=== PATIENT | female | born 1960 | race Caucasian/White ===

== ENCOUNTER 2016-07-25 18:26 | Emergency (ER) | payer BC, MEDICARE ==
[~2016-07-25 18:26] MED LIST: AMB5 PO; AMOXIL500 MG PO; B121000P IM; B12250T PO; BENTYL; BENTYL10 PO; BENTYL20 PO; BUSPAR10 PO; BUTRANS 15 MCG TOP; BUTRANS TOP; BUTRANS1 EAC1 TOP; BUTRANS1 EAC2 TOP; CALCIUM CITRATE 200 MG PO; CALCIUM CITRATE PO; CALCIUM CITRATE+D PO; CALTRA600D PO; CARD30 PO; CAT1 PO; CHOLECALCIFEROL PO; CIPRO PO; CITRACAL PO; COPPER; COPPER 2 MG PO; COPPER PO; COR40 PO; CORTEF10 MG OR; CORTEF20 MG PO; CORTEF5 PO; CREON; CREON PO; CYMBALTA30 PO; CYMBALTA60 PO; D 5000 PO; DAPSONE 100 MG100 MG OR; DAPSONE 100 MG100 MG PO; DAPSONE100 MG OR; DIL2TAB; DIL4TAB PO; DOLOPHINE10 MG PO; DOLOPHINE5 MG PO; DONNATA1 OR; DURA100 TOP; DURA25 TOP; DURA50 TOP; DURA75 TOP; ESTRACE VAGIN42.5 GM V; ESTRADIOL V; ESTRING2 MG VA; FERGON240 MG PO; FERRETTS325 MG PO; FERROUS GLUC324 MG PO; FERROUS GLUC325 MG PO; FERROUS GLUCONATE 325 MG PO; FERROUS GLUCONATE PO; FERROUS SULF325 M1 PO; FLAG500TAB PO; GAS-X80 MG PO; GENASYME80 MG PO; HYDROCHLOROT12.5 MG PO; IMOD PO; IMU PO; IRON325 MG PO; K500 PO; KDUR20 PO; KLOR-CON 1010 MEQ; KLOR-CON M2020 MEQ PO; L20 PO; LEVOTHROID25 MCG PO; LEVSINTAB PO; LEVSINTAB SL; LIDO5OINT TOP; LIDOCAINE 5% CREAM PR; LIDOCAINE 5% CREAM RE; LIDODERM; LIDODERM RE; LIDODERM T; LIDODERM TOP; LOP25 PO; LORTAB10 PO; LORTABLIQ PO; LYRICA50 PO; LYRICA75 PO; MAGNESIUM OXIDE 100 MG PO; MAGNESIUM PO; MAGOX4 PO; MAX25 PO; MEPRON SUS750 MG/5 M PO; METHADOSE10 MG PO; METHATAB10 PO; METHATAB40 PO; MICROZIDE PO; MORPHINE SULFATE PO; MSIMMR15 PO; MULTIPLE VIT PO; MYLICON 80 MG T80 MG PO; MYTAB GAS125 MG PO; MYTAB GAS80 MG PO; NEBUPENT300 M1 INH; NEUR300 PO; NEUR400 PO; NEUR600 PO; NIFEDIPINE 0.2% TOP; NIFEDIPINE/LIDOCAINE PR; NORV10 PO; OPIUM; OS500+D PO; PEP20 PO; PEPCID40 MG OR; PEPCID40 MG PO; PREM625 PO; PROGRAF1; PROGRAF1 PO; PROTONIX PO; PROZAC PO; PROZAC40 MG PO; ROZEREM8 MG PO; SB325 PO; SEROQUEL1C PO; SODBICAR10 PO; SODIUM BICARB PO; SODIUM BICARBONATE PO; SUCR PO; SYN.025B PO; SYN.05 PO; Sodium Bicarbonate PO; T PO; TACROLIMUS PO; TEARS NATURA OPH; TESS PO; TINCTURE OF OPIUM PO; TOPAMAX100 PO; TOPXL25 PO; TRAZ100 PO; TRAZ50 PO; TRAZODONE150 MG PO; URO-MAG140 MG PO; V5 PO; VAGIFEM VA; VAGIFEM10 MCG V; VAGIFEM10 MCG VA; VAGIFEM25 MCG V; VALIUM10 MG PO; VIT B-SIX 50 MG50 MG OR; VITAMIN B-2100 MG PO; VITAMIN B-625 MG OR; VITAMIN C100 MG PO; VITC500 PO; VITD PO; VIVELLE SY0.1 MG/24 TOP; VIVELLE-DOT0.1 MG TOP; WELL100 PO; WELLBUTRIN200 MG PO; WELLSR100 PO; XANAX1 MG PO; ZENPEP5000 UNIT PO; ZOFRAN4 PO; ZOFRANODT8 PO; [UNRECOGNIZED DRUG - OTHER] IV; [UNRECOGNIZED DRUG - OTHER] PO; [UNRECOGNIZED DRUG - OTHER] PO; [UNRECOGNIZED DRUG - OTHER] PO; [UNRECOGNIZED DRUG - OTHER] PO
[2016-07-25 19:00] LABS: BASOPHILS 0.4 %; BASOPHILS ABSOLUTE 0.04 10/3/uL (0.0-0.16); EOSINOPHILS 1.2 %; EOSINOPHILS ABSOLUTE 0.12 10/3/uL (0.0-0.53); ER CBC TAT 0 Hrs 13 Mins; IMMATURE GRANULOCYTES 0.8 %; IMMATURE GRANULOCYTES ABSOLUTE 0.08 10/3/uL (0.0-0.11); LYMPHOCYTES 3.1 %; LYMPHOCYTES ABSOLUTE 0.32 10/3/uL (0.67-4.30); MEAN CORPUS HGB CONC 30.9 g/dL (32.0-36.0); MEAN CORPUSCULAR HEMOGLOB 32.3 pg (26.0-34.0); MEAN PLATELET VOLUME 12.2 fL (9.2-13.0); MONOCYTES ABSOLUTE 0.81 10/3/uL (0.21-1.20); NEUTROPHILS 86.5 %; NEUTROPHILS ABSOLUTE 8.79 10/3/uL (2.02-8.40); NUCLEATED RED BLOOD CELLS 0.6 /100WBC (0-0); PLATELET COUNT 153 10/3/uL (150-400); RBC DISTRIBUTION WIDTH 14.4 % (12.0-16.0); RED CELL COUNT 3.72 10/6/uL (4.0-5.6); WHITE BLOOD CELLS 10.2 10/3/uL (4.5-10.5)
[2016-07-25 19:01] LABS: HEMATOCRIT 38.8 % (36.0-48.0); MEAN CORPUSCULAR VOLUME 104.3 fL (80-100)
[2016-07-25 19:02] LABS: MANUAL DIFF NO %
[2016-07-25 19:16] LABS: ALBUMIN 2.2 G/DL (3.5-5.0); ALKALINE PHOSPHATASE 89 U/L (45-117); BUN (BLOOD UREA NITROGEN) 11 MG/DL (6-23); CHLORIDE, SERUM 110 MMOL/L (96-112); GFR AFRICAN AMERICAN 36 ML/MIN (>=60); GFR NON AFRICAN AMERICAN 31 ML/MIN (>=60); GLUCOSE, SERUM 107 MG/DL (60-99); SGPT(ALT) 29 U/L (5-65); SODIUM, SERUM 139 MMOL/L (135-148); TOTAL BILIRUBIN 0.8 MG/DL (0-1.2); TOTAL PROTEIN 5.7 G/DL (6.0-8.5)
[2016-07-25 19:18] LABS: A/G RATIO 0.6 (0.7-1.9); CO2 (CARBON DIOXIDE) 20 MMOL/L (24-34); GLOBULIN 3.5 G/DL (2.5-4.1); POTASSIUM, SERUM 5.3 MMOL/L (3.5-5.3)
[2016-07-25 19:19] LABS: SGOT(AST) 44 U/L (5-40)
[2016-07-25 19:28] LABS: EOSINOPHILS 4 %; EOSINOPHILS ABSOLUTE (CALC) 0.41 10/3/uL (0.0-0.53); ER DIFF TAT 0 Hrs 41 Mins; LYMPHOCYTES 5 %; LYMPHOCYTES ABSOLUTE (CALC) 0.51 10/3/uL (0.67-4.30); MONOCYTES 4 %; MONOCYTES ABSOLUTE (CALC) 0.41 10/3/uL (0.21-1.20); NEUTROPHILS ABSOLUTE (CALC) 8.87 10/3/uL (2.02-8.40); SEGMENTED NEUTROPHIL (0) 87 %; TOTAL NUCLEATED CELLS 100
[2016-07-25 19:31] LABS: MACROCYTES 1+ (5-10/OIF) (0-5/OIF); PLATELET ESTIMATE ADQ (ADEQUATE); POLYCHROMASIA 1+ (2-5/OIF) (0-1/OIF)
[2016-07-25 19:32] LABS: GIANT PLATELET RARE
[2016-12-15] MEDS ORDERED: LOVENOX40 SC (01:01)
[2016-12-15] MEDS ORDERED: VANCO1P IV (01:04)
[2016-12-15] MEDS ORDERED: AMB10 PO (01:06)
[2016-12-15] MEDS ORDERED: BENTYL10 PO (01:09)
[2016-12-15] MEDS ORDERED: BUTRANS1 EAC1 TOP (01:09)
[2016-12-15] MEDS ORDERED: CAT1 PO (01:09)
[2016-12-15] MEDS ORDERED: CORTEF5 PO (01:11)
[2016-12-15] MEDS ORDERED: CYMBALTA60 PO (01:11)
[2016-12-15] MEDS ORDERED: V5 PO (01:12)
[2016-12-15] MEDS ORDERED: DIL4TAB PO (01:13)
[2016-12-15] MEDS ORDERED: ESTRACE VAGIN42.5 GM V (01:14)
[2016-12-15] MEDS ORDERED: APRES25 PO (01:15)
[2016-12-15] MEDS ORDERED: VAGIFEM10 MCG V (01:15)
[2016-12-15] MEDS ORDERED: FERROUS GLUCONATE PO (01:15)
[2016-12-15] MEDS ORDERED: LAMICTAL10 PO (01:16)
[2016-12-15] MEDS ORDERED: LIDODERM TOP (01:17)
[2016-12-15] MEDS ORDERED: DOLOPHINE10 MG PO ×2 (01:18→01:19)
[2016-12-15] MEDS ORDERED: COR40 PO (01:19)
[2016-12-15] MEDS ORDERED: PREM625 PO (01:20)
[2016-12-15] MEDS ORDERED: NEUR600 PO (01:20)
[2016-12-15] MEDS ORDERED: PROTONIX PO (01:21)
[2016-12-15] MEDS ORDERED: MYTAB GAS80 MG PO (01:21)
[2016-12-15] MEDS ORDERED: REG5 PO (01:21)
[2016-12-15] MEDS ORDERED: PROGRAF1 PO (01:22)
[2016-12-15] MEDS ORDERED: TESS PO (01:23)
[2016-12-15] MEDS ORDERED: WELL100 PO (01:24)
[2016-12-15] MEDS ORDERED: ZOFRAN4 PO (01:25)
[2016-12-15] MEDS ORDERED: NIFEDIPINE PR (01:36)
[2016-12-15] MEDS ORDERED: VITAMIN D OTC PO (01:38)
[2016-12-16] MEDS ORDERED: C5 PO (15:54)
== END 2016-07-25 22:09 | disposition home or self-care (01) ==
LOC: ER 18:26
PROVIDERS: Emergency Medicine
DX: K63.2 Fistula of intestine (principal); K50.90 Crohn's disease, unspecified, without complications; I12.9 Hypertensive chronic kidney disease with stage 1 through stage 4 chronic kidney disease, or unspecified chronic kidney disease; N18.9 Chronic kidney disease, unspecified; Z88.2 Allergy status to sulfonamides; Z88.8 Allergy status to other drugs, medicaments and biological substances; Z79.899 Other long term (current) drug therapy
CPT/HCPCS: 80053; 85025; 96374; 96375; 99284; J1170; J2405

== ENCOUNTER 2016-08-10 19:10 | Emergency (ER) | payer BC, MEDICARE ==
[2016-08-10 19:59] LABS: BASOPHILS 0.2 %; BASOPHILS ABSOLUTE 0.02 10/3/uL (0.0-0.16); EOSINOPHILS 1.2 %; ER CBC TAT 0 Hrs 11 Mins; HEMATOCRIT 35.1 % (36.0-48.0); HEMOGLOBIN 11.2 g/dL (12.0-16.0); IMMATURE GRANULOCYTES 0.1 %; IMMATURE GRANULOCYTES ABSOLUTE 0.01 10/3/uL (0.0-0.11); LYMPHOCYTES 4.4 %; LYMPHOCYTES ABSOLUTE 0.38 10/3/uL (0.67-4.30); MEAN CORPUS HGB CONC 31.9 g/dL (32.0-36.0); MEAN CORPUSCULAR HEMOGLOB 32.5 pg (26.0-34.0); MEAN CORPUSCULAR VOLUME 101.7 fL (80-100); MEAN PLATELET VOLUME 12.3 fL (9.2-13.0); MONOCYTES 3.4 %; MONOCYTES ABSOLUTE 0.29 10/3/uL (0.21-1.20); NEUTROPHILS 90.7 %; NEUTROPHILS ABSOLUTE 7.84 10/3/uL (2.02-8.40); RBC DISTRIBUTION WIDTH 14.2 % (12.0-16.0); RED CELL COUNT 3.45 10/6/uL (4.0-5.6); WHITE BLOOD CELLS 8.6 10/3/uL (4.5-10.5)
[2016-08-10 20:00] LABS: MANUAL DIFF NO %; PLATELET COUNT 218 10/3/uL (150-400)
[2016-08-10 20:06] LABS: PROTIME (NOT ORD) 13.1 SEC (12.0-14.5)
[2016-08-10 20:09] LABS: ALKALINE PHOSPHATASE 95 U/L (45-117); CALCIUM, SERUM 8.6 MG/DL (8.5-10.4); CHLORIDE, SERUM 109 MMOL/L (96-112); CREATININE 1.96 MG/DL (0.55-1.02); GFR AFRICAN AMERICAN 33 ML/MIN (>=60); GFR NON AFRICAN AMERICAN 28 ML/MIN (>=60); GLUCOSE, SERUM 95 MG/DL (60-99); SGOT(AST) 14 U/L (5-40); SGPT(ALT) 25 U/L (5-65); SODIUM, SERUM 145 MMOL/L (135-148); TOTAL PROTEIN 6.5 G/DL (6.0-8.5)
[2016-08-10 20:10] LABS: A/G RATIO 0.9 (0.7-1.9); BUN (BLOOD UREA NITROGEN) 16 MG/DL (6-23); CO2 (CARBON DIOXIDE) 27 MMOL/L (24-34); GLOBULIN 3.5 G/DL (2.5-4.1); TOTAL BILIRUBIN 0.3 MG/DL (0-1.2)
[2016-08-10 20:58] LABS: PARTIAL THROMBO TIME 22.9 SEC (22.5-37.2)
[2016-12-15] MEDS ORDERED: LOVENOX40 SC (01:01)
[2016-12-15] MEDS ORDERED: VANCO1P IV (01:04)
[2016-12-15] MEDS ORDERED: AMB10 PO (01:06)
[2016-12-15] MEDS ORDERED: BUTRANS1 EAC1 TOP (01:09)
[2016-12-15] MEDS ORDERED: BENTYL10 PO (01:09)
[2016-12-15] MEDS ORDERED: CAT1 PO (01:09)
[2016-12-15] MEDS ORDERED: CYMBALTA60 PO (01:11)
[2016-12-15] MEDS ORDERED: CORTEF5 PO (01:11)
[2016-12-15] MEDS ORDERED: V5 PO (01:12)
[2016-12-15] MEDS ORDERED: DIL4TAB PO (01:13)
[2016-12-15] MEDS ORDERED: ESTRACE VAGIN42.5 GM V (01:14)
[2016-12-15] MEDS ORDERED: VAGIFEM10 MCG V (01:15)
[2016-12-15] MEDS ORDERED: FERROUS GLUCONATE PO (01:15)
[2016-12-15] MEDS ORDERED: APRES25 PO (01:15)
[2016-12-15] MEDS ORDERED: LAMICTAL10 PO (01:16)
[2016-12-15] MEDS ORDERED: LIDODERM TOP (01:17)
[2016-12-15] MEDS ORDERED: DOLOPHINE10 MG PO ×2 (01:18→01:19)
[2016-12-15] MEDS ORDERED: COR40 PO (01:19)
[2016-12-15] MEDS ORDERED: PREM625 PO (01:20)
[2016-12-15] MEDS ORDERED: NEUR600 PO (01:20)
[2016-12-15] MEDS ORDERED: PROTONIX PO (01:21)
[2016-12-15] MEDS ORDERED: MYTAB GAS80 MG PO (01:21)
[2016-12-15] MEDS ORDERED: REG5 PO (01:21)
[2016-12-15] MEDS ORDERED: PROGRAF1 PO (01:22)
[2016-12-15] MEDS ORDERED: TESS PO (01:23)
[2016-12-15] MEDS ORDERED: WELL100 PO (01:24)
[2016-12-15] MEDS ORDERED: ZOFRAN4 PO (01:25)
[2016-12-15] MEDS ORDERED: NIFEDIPINE PR (01:36)
[2016-12-15] MEDS ORDERED: VITAMIN D OTC PO (01:38)
[2016-12-16] MEDS ORDERED: C5 PO (15:54)
== END 2016-08-10 22:13 | disposition home or self-care (01) ==
LOC: ER 19:10
PROVIDERS: Emergency Medicine
DX: K50.913 Crohn's disease, unspecified, with fistula (principal); I12.9 Hypertensive chronic kidney disease with stage 1 through stage 4 chronic kidney disease, or unspecified chronic kidney disease; N18.9 Chronic kidney disease, unspecified; F41.9 Anxiety disorder, unspecified; F32.9 Major depressive disorder, single episode, unspecified; Z88.8 Allergy status to other drugs, medicaments and biological substances; Z88.1 Allergy status to other antibiotic agents; Z88.2 Allergy status to sulfonamides; Z91.041 Radiographic dye allergy status; Z87.442 Personal history of urinary calculi; Z79.899 Other long term (current) drug therapy
CPT/HCPCS: 36415; 80053; 85025; 85610; 85730; 86850; 86900; 86901; 93005; 99283

== ENCOUNTER 2016-09-27 03:28 | Emergency (ER) | payer BC, MEDICARE ==
[2016-09-27 03:58] LABS: BASOPHILS 0.2 %; BASOPHILS ABSOLUTE 0.01 10/3/uL (0.0-0.16); EOSINOPHILS 0.5 %; EOSINOPHILS ABSOLUTE 0.03 10/3/uL (0.0-0.53); ER CBC TAT 0 Hrs 05 Mins; HEMATOCRIT 31.6 % (36.0-48.0); HEMOGLOBIN 10.1 g/dL (12.0-16.0); IMMATURE GRANULOCYTES 0.3 %; IMMATURE GRANULOCYTES ABSOLUTE 0.02 10/3/uL (0.0-0.11); LYMPHOCYTES 9.5 %; LYMPHOCYTES ABSOLUTE 0.57 10/3/uL (0.67-4.30); MANUAL DIFF NO %; MEAN CORPUSCULAR HEMOGLOB 31.5 pg (26.0-34.0); MEAN CORPUSCULAR VOLUME 98.4 fL (80-100); MEAN PLATELET VOLUME 13.1 fL (9.2-13.0); MONOCYTES ABSOLUTE 0.36 10/3/uL (0.21-1.20); NEUTROPHILS 83.5 %; NEUTROPHILS ABSOLUTE 4.98 10/3/uL (2.02-8.40); PLATELET COUNT 131 10/3/uL (150-400); RED CELL COUNT 3.21 10/6/uL (4.0-5.6)
[2016-09-27 04:19] LABS: ALKALINE PHOSPHATASE 101 U/L (45-117); CALCIUM, SERUM 7.8 MG/DL (8.5-10.4); CHLORIDE, SERUM 101 MMOL/L (96-112); CO2 (CARBON DIOXIDE) 31 MMOL/L (24-34); POTASSIUM, SERUM 3.7 MMOL/L (3.5-5.3); SGOT(AST) 20 U/L (5-40); SGPT(ALT) 24 U/L (5-65); SODIUM, SERUM 140 MMOL/L (135-148); TOTAL BILIRUBIN 0.5 MG/DL (0-1.2)
[2016-09-27 04:20] LABS: A/G RATIO 0.8 (0.7-1.9); ALBUMIN 2.2 G/DL (3.5-5.0); BUN (BLOOD UREA NITROGEN) 30 MG/DL (6-23); CREATININE 1.36 MG/DL (0.55-1.02); GFR AFRICAN AMERICAN 51 ML/MIN (>=60); GFR NON AFRICAN AMERICAN 44 ML/MIN (>=60); GLOBULIN 2.9 G/DL (2.5-4.1); GLUCOSE, SERUM 130 MG/DL (60-99); LACTATE 0.9 MMOL/L (0.3-2.4); TOTAL PROTEIN 5.1 G/DL (6.0-8.5)
[2016-09-27 04:40] LABS: ASCORBIC ACID (UR NOT ORDER) NEG (NEG); BILIRUBIN, URINE NEGATIVE (NEG); ER URINALYSIS TAT 0 Hrs 00 Mins; KETONE, URINE NEGATIVE (NEG); LEUKOCYTE ESTERASE(NOT OR NEG (NEG); NITRITE (URINE) NEG (NEG); WBC (NOT ORDERED) (RFLEX) 0 (0-5)
[2016-09-27 04:47] LABS: PROCALCITONIN 0.28 ng/mL (<0.5)
[2016-09-28] MEDS ORDERED: ZOFRAN4 PO (23:53)
[2016-09-28] MEDS ORDERED: REG5 PO (23:54)
[2016-09-28] MEDS ORDERED: BUTRANS1 EAC1 TOP (23:54)
[2016-09-28] MEDS ORDERED: PROGRAF1 PO (23:55)
[2016-09-28] MEDS ORDERED: APRES25 PO (23:56)
[2016-09-28] MEDS ORDERED: DIL4TAB PO (23:57)
[2016-09-28] MEDS ORDERED: DOLOPHINE10 MG PO ×2 (23:58)
[2016-09-28] MEDS ORDERED: AMB10 PO (23:59)
[2016-12-15] MEDS ORDERED: LOVENOX40 SC (01:01)
[2016-12-15] MEDS ORDERED: VANCO1P IV (01:04)
[2016-12-15] MEDS ORDERED: AMB10 PO (01:06)
[2016-12-15] MEDS ORDERED: CAT1 PO (01:09)
[2016-12-15] MEDS ORDERED: BENTYL10 PO (01:09)
[2016-12-15] MEDS ORDERED: BUTRANS1 EAC1 TOP (01:09)
[2016-12-15] MEDS ORDERED: CORTEF5 PO (01:11)
[2016-12-15] MEDS ORDERED: CYMBALTA60 PO (01:11)
[2016-12-15] MEDS ORDERED: V5 PO (01:12)
[2016-12-15] MEDS ORDERED: DIL4TAB PO (01:13)
[2016-12-15] MEDS ORDERED: ESTRACE VAGIN42.5 GM V (01:14)
[2016-12-15] MEDS ORDERED: APRES25 PO (01:15)
[2016-12-15] MEDS ORDERED: VAGIFEM10 MCG V (01:15)
[2016-12-15] MEDS ORDERED: FERROUS GLUCONATE PO (01:15)
[2016-12-15] MEDS ORDERED: LAMICTAL10 PO (01:16)
[2016-12-15] MEDS ORDERED: LIDODERM TOP (01:17)
[2016-12-15] MEDS ORDERED: DOLOPHINE10 MG PO ×2 (01:18→01:19)
[2016-12-15] MEDS ORDERED: COR40 PO (01:19)
[2016-12-15] MEDS ORDERED: NEUR600 PO (01:20)
[2016-12-15] MEDS ORDERED: PREM625 PO (01:20)
[2016-12-15] MEDS ORDERED: REG5 PO (01:21)
[2016-12-15] MEDS ORDERED: MYTAB GAS80 MG PO (01:21)
[2016-12-15] MEDS ORDERED: PROTONIX PO (01:21)
[2016-12-15] MEDS ORDERED: PROGRAF1 PO (01:22)
[2016-12-15] MEDS ORDERED: TESS PO (01:23)
[2016-12-15] MEDS ORDERED: WELL100 PO (01:24)
[2016-12-15] MEDS ORDERED: ZOFRAN4 PO (01:25)
[2016-12-15] MEDS ORDERED: NIFEDIPINE PR (01:36)
[2016-12-15] MEDS ORDERED: VITAMIN D OTC PO (01:38)
[2016-12-16] MEDS ORDERED: C5 PO (15:54)
== END 2016-09-27 07:20 | disposition home or self-care (01) ==
LOC: ER 03:28
PROVIDERS: Emergency Medicine
DX: R50.9 Fever, unspecified (principal); G47.30 Sleep apnea, unspecified; I10 Essential (primary) hypertension; F32.9 Major depressive disorder, single episode, unspecified; F41.9 Anxiety disorder, unspecified; D64.9 Anemia, unspecified; Z91.041 Radiographic dye allergy status; Z94.82 Intestine transplant status; Z87.442 Personal history of urinary calculi; Z88.2 Allergy status to sulfonamides; Z88.1 Allergy status to other antibiotic agents; Z88.8 Allergy status to other drugs, medicaments and biological substances; Z79.899 Other long term (current) drug therapy
CPT/HCPCS: 71010; 74176; 80053; 81001; 83605; 83690; 84145; 85025; 87040; 87077; 87150; 87186; 96365; 96366; 96375; 99284; J1885; J2765; J3370

== ENCOUNTER 2016-09-28 21:43 | Inpatient (IN) | payer BC, MEDICARE ==
--- NOTE | ~2016-09-28 | DS ---
Discharge Summary [facility] [address] [facility] [place]. [address] NAME: MICHAEL ORTEGA : 62 STATUS : DIS IN PAT#: [id number] AGE: 56 ADM/REG DATE : 09/29/16 MR#: [id number] REPORT SERV DATE: 10/02/16 DICTATED BY: SULAIMAN ARAMBULA DATE: 10/01/16 REPORT STATUS : Draft TRANSCRIBED BY: MODL DATE: 10/01/16 ADMISSION DATE: 09/28/2016 DISCHARGE DATE: 10/01/2016 REASON FOR ADMISSION: Called back for positive blood cultures. HISTORY OF PRESENT ILLNESS: Please refer to Dr. Justin Funez's history and physical dated 09/28/2016 for complete details regarding the patient's admission. In brief, the patient was admitted to the Hospitalist Service for management and evaluation of her positive blood cultures. HOSPITAL COURSE: The patient had an uncomplicated hospital course. Several issues were addressed. 1. Positive blood cultures. The patient initially presented to the ER after she was starting to notice a cellulitis in the left lower extremity. They obtained some blood cultures. She was discharged from the ER with at least two doses of IV vancomycin with a trough being called into the patient's resident service coordinator. She was called back for positive blood cultures that were initially called back as MRSA; however, the final blood cultures came back as being Staph epidermidis. Repeat blood cultures dated on 09/29/2016 showed no growth to date. She was started on vancomycin when she was admitted by Dr. Funez. Infectious Disease was consulted. Given the culture results and the fact that her lower extremity culture came back as a different organism than Staph epidermidis, Dr. Shipman felt that the Staph epidermidis was likely a contaminant and not a true bacteremia, but given her left lower extremity cellulitis and her immunocompromised state, it was best to continue to treat her with vancomycin for two weeks. 2. Left lower extremity cellulitis with wound. This was markedly improving with antibiotics. Cultures obtained from the ER prior to admission grew out MRSA and Citrobacter. She was already on vancomycin and Dr. Shipman recommended adding ciprofloxacin for which the patient has been on and does not have an allergic reaction to. Her cellulitis has markedly improved. 3. Acute on chronic hypoxic respiratory failure secondary to volume overload secondary to hypoalbuminemia. The patient was gotten up as high as 4 liters. Chest x-ray showed some venous congestion and pleural effusion. I had ordered two doses of IV Lasix, however, she declined taking Lasix as she was told by the resident service coordinator to never be on Lasix. She was weaned off oxygen and saturating about 91%. She does use 2 liters periodically at home. This has resolved on its own. 4. History of Crohn's with small bowel transplant, on tacrolimus. This is followed closely by [facility]. She is currently on TPN. A PICC line with TPN had already been arranged prior to admission. 5. Adrenal insufficiency. She is on Cortef 15 mg three times a day. Dr. Funez had discontinued her Cortef and put her on stress-dose steroids. She has been weaned down. She did not have any issues with adrenal crisis. She is back to her baseline Cortef. 6. CKD stage III. This has been stable throughout the hospitalization. 7. History of chronic pain, dependent on methadone and other narcotics. The patient is on methadone and other narcotics along with benzodiazepine. She sees Dr. Boyd as an Discharge Summary [address] [address] NAME: MICHAEL ORTEGA : 62 STATUS : DIS IN PAT#: [id number] AGE: 56 ADM/REG DATE : 09/29/16 MR#: [id number] REPORT SERV DATE: 10/02/16 DICTATED BY: SULAIMAN ARAMBULA DATE: 10/01/16 REPORT STATUS : Draft TRANSCRIBED BY: VIDHI DATE: 10/01/16 outpatient. There are times when she had complained of some abdominal pain, but she did not appear to be in any abdominal pain at all. Her pain had been well controlled on her home med regimen. 8. Depression and anxiety. Her home medications were continued. These have been stable throughout the hospitalization except for the night prior to discharge, which will be explained below. 9. Ceiling tiles with water falling on her on the night of 09/30/2016. On 09/30/2016, it was planned to be discharged home on 10/01/2016 after we arranged IV vancomycin. Unfortunately during the nighttime, the patient had some ceiling tiles and water fall on her which caused a traumatic event for her. On 10/01/2016, she was moved to a different room and she was still pretty emotional. Dr. Shipman and I have visited the patient and her mom was at her bedside. She was very tearful, but pleasant and was requesting to go home. Given the traumatic incident for her, she was not harmed in any way. A CT scan of her abdomen was done, which did not show any acute events. An x-ray of her shoulder was obtained, which did not show any fracture or dislocation. Efforts were made to address any issues she had by notifying risk management and housekeeper manager, charge nurse, and nurse water control supervisor for [facility]. I asked if the patient needed anything and she said no she did not, was requesting to go home which from a medical stand point, the patient was already stable to do so. 10.Pleural effusion. This was likely secondary to her hypoalbuminemia and declining the use of Lasix. It has been stable. She has not any respiratory distress. She was weaned off oxygen. 11.CKD stage III. This had remained stable throughout the hospitalization. 12.Obstructive sleep apnea. This was stable. PROCEDURES: Include CT scan of the abdomen and pelvis, consultation with Dr. Shipman, right shoulder x-ray, thoracic and lumbar spine x-rays, and 2D echocardiogram which did not show any signs of vegetation, but showed some mild diastolic dysfunction. DISCHARGE MEDICATIONS: Include Wellbutrin 200 mg twice a day, Cymbalta 60 mg every morning, ciprofloxacin 500 mg twice a day, Premarin 0.625 mg at bedtime, Neurontin 600 mg at bedtime, Dilaudid 4 mg four times a day, methadone 10 mg at bedtime, Lamictal 50 mg twice a day, methadone 20 mg every morning, metoclopramide 5 mg three times a day, nadolol 40 mg twice a day, Protonix 40 mg twice a day, tacrolimus 1 mg twice a day, zolpidem 10 mg at bedtime, clonidine 0.1 mg twice a day, hydralazine 25 mg twice a day, vancomycin 1 g twice a day for two weeks, Zofran p.r.n., buprenorphine 10 mcg patch every seven days, furosemide 10 mg p.r.n. edema, Valium 5 mg three times a day as needed for anxiety, Cortef 15 mg three times a day, estradiol daily, ferrous gluconate 325 mg twice a day, and nifedipine cream p.r.n. FOLLOWUP: The patient will follow up with Dr. Shipman and her [facility] transplant team. This is Dr. Sulaiman Arambula doing over 30 minutes of discharge planning and coordination of care on Ms. Ortega. DICTATED BY: Sulaiman Arambula MD Discharge Summary [address] [place] [address] NAME: MICHAEL ORTEGA : 62 STATUS : DIS IN PAT#: [id number] AGE: 56 ADM/REG DATE : 09/29/16 MR#: [id number] REPORT SERV DATE: 10/02/16 DICTATED BY: SULAIMAN ARAMBULA DATE: 10/01/16 REPORT STATUS : Draft TRANSCRIBED BY: MODYamile DATE: 10/01/16 MARIANA/VIDHI Sulaiman Arambula MD / [id number] CC: MD Michelle Montana M.D.
--- NOTE | ~2016-09-28 | CN ---
Consultation Report [facility] [address] [place]. [address] NAME: MICHAEL RUDD : 62 STATUS : ADM IN PAT#: [id number] AGE: 56 ADM/REG DATE : 09/29/16 MR#: [id number] REPORT SERV DATE: 09/29/16 DICTATED BY: AMANDA LUNA DATE: 09/29/16 REPORT STATUS : Draft TRANSCRIBED BY: MODL DATE: 09/29/16 INFECTIOUS DISEASE CONSULT DATE OF CONSULTATION: REFERRING PHYSICIAN: Dr. Funez. REASON FOR REFERRAL: Evaluation and treatment of MRSA bacteremia. HISTORY OF PRESENT ILLNESS: The patient is a 56-year-old female. She has a history most importantly of Crohn's disease. She also has hypertension, obstructive sleep apnea, and hypothyroidism. She has had to have extensive bowel resection in the past due to the Crohn's, so in 1996 underwent a small-bowel transplant at the [facility]. She has had difficulty with chronic rejection of that and has developed a fistula and at [place], they, in July, placed a PICC and put her on TPN in anticipation of having surgery to repair that fistula. She was doing well without any problems with the PICC line. No fever etc., but one week ago, she bumped her left leg on a box and developed redness at the site that grew worse and worse and was consistent with a cellulitis, so she came to the emergency room on Saturday the . They felt it was a cellulitis and gave her one dose of intravenous vancomycin and discharged her after doing appropriate cultures. Presumably she was continued on antibiotics but it is uncertain how that was to be given but she said she had not had another dose of vancomycin since Saturday and yesterday her blood cultures turned out positive two of two for methicillin-resistant Staph aureus. So she was called back in and begun last evening on vancomycin. She does have an elevated creatinine of 1.58. A vancomycin level checked when she returned last night was 14.1, so she did maintain a therapeutic level. She has had low-grade temperatures in the 99 to 100 range. She is complaining of back pain but says that is old and has not changed in severity or character. She continues to have significant pain with her leg. She has had no difficulties with the PICC line. PAST MEDICAL HISTORY: Otherwise unremarkable. MEDICATIONS: She is on vancomycin. ALLERGIES: SHE IS ALLERGIC TO SULFA, WHICH CAUSES A RASH. SHE ALSO HAS HAD A RASH IN THE PAST WITH CLINDAMYCIN. 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 No history of alcohol or substance abuse. No history of smoking. FAMILY HISTORY: Noncontributory. PHYSICAL EXAMINATION: GENERA: Chronically ill but nontoxic adult female, in no acute distress. She is Consultation Report [address] [address] NAME: MICHAEL RUDD : 62 STATUS : ADM IN [facility]#: [id number] AGE: 56 ADM/REG DATE : 09/29/16 MR#: [id number] REPORT SERV DATE: 09/29/16 DICTATED BY: AMANDA LUNA DATE: 09/29/16 REPORT STATUS : Draft TRANSCRIBED BY: VIDHI DATE: 09/29/16 alert and oriented x3. VITAL SIGNS: Her temperature at present 99 with a pulse of 74, respirations 16, blood pressure 108/60, and weight is 75 kg. HEENT: Sclerae clear. No oral lesions. NECK: Supple. LUNGS: There are rales in the bases, otherwise clear. HEART: Regular rate and rhythm. ABDOMEN: Soft, nontender. Positive bowel sounds. EXTREMITIES: Her left calf, there is erythema in the mid calf circumferentially. There is a shallow ulceration about 3 cm with no active drainage on it on the middle of that lesion on the calf. No other extremity lesions noted. PICC line shows no warmth, tenderness, or redness. LABORATORY DATA: Her white blood cell count is 6.8, hematocrit 32.4, and platelets 126. Normal differential. No white blood cell count. BUN and creatinine 27 and 1.39; creatinine down from 1.58 at presentation last evening. Procalcitonin 0.75. Blood cultures as previously mentioned, they were repeated early this morning. IMPRESSION: Methicillin-resistant Staph aureus sepsis with the source I feel cellulitis on her leg after suffering mild trauma there. It is certainly possible that the PICC line is infected as well, but I do not think that is a certainty at this point. RECOMMENDATIONS: 1. Agree with the vancomycin. 2. I do not think it is incumbent upon us to immediately pull the PICC since the leg is, I feel, the source but if her fever does not rapidly resolve or repeat cultures are positive, we will need to pull it. 3. Finally, I will follow the patient with you. 4. I appreciate very much your consulting on this patient. YONIS anda Luna M.D. / [id number] CC: MD Michelle Montana M.D.
--- NOTE | ~2016-09-28 | DS ---
Discharge Summary [place] [address] [place]. [address] NAME: MICHAEL RUDD : 62 STATUS : DIS IN PAT#: [id number] AGE: 56 ADM/REG DATE : 09/29/16 MR#: [id number] REPORT SERV DATE: 10/02/16 DICTATED BY: SULAIMAN PEREZ DATE: 10/01/16 REPORT STATUS : Draft TRANSCRIBED BY: MODL DATE: 10/01/16 ADMISSION DATE: 09/29/2016 DISCHARGE DATE: 10/01/2016 ADDENDUM: DISCHARGE DIAGNOSES: Staphylococcus epidermidis bacteremia, likely a contaminant and not a true bacteremia; acute on chronic hypoxic respiratory failure, now resolved; history of Crohn's, status post small bowel transplant on chronic antirejection medications with Tacrolimus; adrenal insufficiency, on Cortef; chronic kidney disease, stage III; chronic pain, dependent on methadone and other narcotics; major depressive disorder; anxiety disorder; hypoalbuminemia; pleural effusion secondary to hypoalbuminemia; left lower extremity cellulitis with ulcer, resolving; and obstructive sleep apnea. DICTATED BY: MD MARIANA Montana/VIDHI Sulaiman Perez MD / [id number] CC: MD Michelle Montana M.D.
--- NOTE | ~2016-09-28 | HP ---
History And Physical [place] [id number] [facility] [place]. [address] NAME: MICHAEL RUDD : 62 STATUS : ADM IN [facility]#: [id number] AGE: 56 ADM/REG DATE : 09/29/16 MR#: [id number] REPORT SERV DATE: 09/29/16 DICTATED BY: DATE: REPORT STATUS : Draft TRANSCRIBED BY: MODL DATE: 09/29/16 DATE OF ADMISSION: 09/28/2016 The patient is admitted to the [facility]. Attending, Dr. Justin Funez. CHIEF COMPLAINT: Called back for positive blood cultures. HISTORY OF PRESENT ILLNESS: Ms Rudd is a 56-year-old white female, history of a small- bowel transplant on chronic immune suppressing medications, followed at the [facility]. Recently diagnosed with a fistula and has been on TPN through a PICC line placed in the right upper extremity in July of this year. She ran into a cardboard box a few days ago and broke skin on her left lower extremity around the cloud. She noticed that the wound was becoming progressively red, hot, tender to palpation and sought care at the emergency department on the morning of 09/27/2016 when she developed fevers. She was evaluated with a normal white blood cell count, normal lactate, negative procalcitonin at that time. Blood cultures were obtained from her PIC and peripheral. She was discharged to home on IV vancomycin through her PICC line, with her first dose received morning, 09/27/2016 and her second dose returned this morning around 9 a.m. Her current vancomycin dosing has been 1 g q.24 hours. The patient was to have a vancomycin trough checked with dose adjustments made for the 09/29/2016 dose. Since discharge, her blood cultures have become positive, 2/2 positive for MRSA. One was from the PICC and one was peripheral. The patient was called back per protocol and is now resting comfortably in the emergency department, for admission. She feels that the leg wound has become slightly more red, but has not been draining. She denies any tenderness, redness, or drainage from her PICC line. She continues to have some low-grade fevers and reports that her back pain has increased over the past 24 hours, primarily in her lumbar spine. REVIEW OF SYSTEMS: Full 14-point review of systems is negative except as dictated in the history of present illness. PAST MEDICAL HISTORY: Extensive and includes, 1. Crohn's colitis with history of colectomy and ileostomy, followed locally by Dr. Aydee Johnson. 2. Small bowel transplant in 1996, followed by sales planning coordinator at the [facility]. 3. 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 4. Presently, TPN dependent. 5. Peptic ulcer disease. History And Physical [address] [address] NAME: MICHAEL RUDD : 62 STATUS : ADM IN [facility]#: [id number] AGE: 56 ADM/REG DATE : 09/29/16 MR#: [id number] REPORT SERV DATE: 09/29/16 DICTATED BY: DATE: REPORT STATUS : Draft TRANSCRIBED BY: MODL DATE: 09/29/16 6. Chronic pain syndrome. 7. Anxiety and depression. 8. Chronic kidney disease stage 3 with baseline creatinine 1.4 to 1.8. 9. History of mesenteric thrombosis-superficial vein thrombosis, previously on blood thinners, but not presently. 10.Pelvic congestion syndrome. 11.Hypertension. 12.History of nephrolithiasis. 13.History of urinary tract infection. 14.Bilateral hydronephrosis-followed by Dr. Menon. 15.Chronic ventral hernia. 16.Hypothyroidism. 17.Adrenal insufficiency. 18.Chronic anemia. 19.History of recurrent pneumonia. 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 23.Obstructive sleep apnea. PAST SURGICAL HISTORY: Includes, 1. Small-bowel transplant in 1996. 2. Multiple small bowel surgeries and colectomy with ileostomy for Crohn disease. 3. Cholecystectomy. 4. Hysterectomy. 5. Right elbow nerve surgery. 6. Left ankle surgery. 7. Right thyroidectomy. ALLERGIES: INCLUDE, PHENERGAN, STADOL, TALWIN, SULFA, XANAX, CLINDAMYCIN, AND DAPSONE. SOCIAL HISTORY: No tobacco abuse. No alcohol abuse. 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 She lives in [facility]. She has one child. FAMILY HISTORY: Negative for Crohn's disease or ulcerative colitis. There is a strong family history of heart disease, stroke, diabetes, cancers. PHYSICAL EXAMINATION: VITAL SIGNS: Blood pressure 99/66, temperature 99, pulse 82, respirations 18, oxygen saturation 92% on room air. GENERAL: This is a chronically ill-appearing white female, looking her stated age, in no acute distress. Alert and oriented in three dimensions. Somewhat sleepy. HEENT: Normocephalic, atraumatic. Pupils are equally round and reactive to light. Positive lanza facies. No sinus tenderness to palpation. No nasal drainage. Oropharynx is moist and pink. NECK: Supple with no jugular venous distention. No lymphadenopathy. No bruits. CARDIOVASCULAR: Regular rate and rhythm. No murmurs, rubs or gallops. History And Physical [address] [address] NAME: MICHAEL RUDD : 62 STATUS : ADM IN [facility]#: [id number] AGE: 56 ADM/REG DATE : 09/29/16 MR#: [id number] REPORT SERV DATE: 09/29/16 DICTATED BY: DATE: REPORT STATUS : Draft TRANSCRIBED BY: MODL DATE: 09/29/16 LUNGS: Clear to auscultation bilaterally. No wheezes, crackles, nor rhonchi. ABDOMEN: Soft, diffusely tender to palpation. Liquid stool from ostomy. No evidence of bleeding. Positive bowel sounds in four quadrants. EXTREMITIES: Trace edema bilateral lower extremities, improved from prior. No cyanosis or clubbing. Calves are not tender to palpation. SKIN: A 3 cm diameter ulceration on the left lower extremity with surrounding erythema and warmth. No current wound drainage. PICC line in the right upper extremity shows no erythema, warmth, or tenderness. No drainage. NEUROLOGIC: Cranial nerves II through XII are tested and are intact. Deep tendon reflexes 2+ bilateral brachioradialis and patellar tendons. Sensation intact to fine touch and temperature in all four limbs. Strength 4/5 in all four extremities. LABORATORY DATA: Labs from 09/27/2016 and 09/28/2016 are reviewed as well as imaging. Current white blood cell count 7.2, hemoglobin 10.1, hematocrit 31.8, platelets 130. Lactic acid level is negative. Procalcitonin is positive today at 0.91, negative yesterday. Sodium 139, potassium 4.1, chloride 100, bicarb 33, BUN 36, creatinine 1.58, glucose 64, calcium 8.2. Lipase yesterday was 600 and urinalysis yesterday showed cloudy urine, but otherwise negative for infection or other abnormality. IMAGING: Portable chest x-ray done yesterday for fever shows shallow inspiration with mild central venous congestion and a PICC line in good position. CT abdomen and pelvis without contrast done yesterday shows large absence of subcutaneous tissue over the midline and right anterior abdominal wall in the mid lower abdomen with ostomy site present. Deformity of the bowel transplant. Prior hysterectomy and colectomy. No mechanical obstruction. Borderline cardiomegaly with trace pericardial effusion. Blood cultures from 09/27/2016, 2/ positive for MRSA and a wound culture in progress today shows rare white blood cells on Gram stain and moderate gram-positive cocci in pairs with few gram-positive cocci in clusters. This was a superficial swab. IMPRESSION: 1. Methicillin-resistant Staphylococcus aureus bacteremia-blood cultures positive from both PICC and peripheral, suspect possible PICC associated bacteremia. 2. Left lower extremity cellulitis-wound culture is pending. 3. Back pain-rule out diskitis. 4. History of bowel transplant on immune suppressants, with recent fistula formation, total parent nutrition dependent, on clear liquids. 5. Chronic kidney disease stage III-creatinine currently at baseline. 6. History of adrenal insufficiency. 7. Chronic pain syndrome and narcotic dependence. 8. Generalized anxiety/depression-benzodiazepine dependent. PLAN: 1. Admission to a med/surg telemetry unit, attending, Dr. Justin Funez. History And Physical [address] [address] NAME: MICHAEL RUDD : 62 STATUS : ADM IN [facility]#: [id number] AGE: 56 ADM/REG DATE : 09/29/16 MR#: [id number] REPORT SERV DATE: 09/29/16 DICTATED BY: DATE: REPORT STATUS : Draft TRANSCRIBED BY: VIDHI DATE: 09/29/16 2. Continue IV vancomycin after checking a vancomycin trough, with next dose due at 9 in the morning on 09/29/2016. 3. Infectious Disease consult per protocol. 4. Wound care consult. 5. Plain films of the thoracic spine and lumbar spine to evaluate for possible diskitis. 6. Hold the patient's home TPN for now-reevaluate the safety of PICC use after additional cultures. For now, the patient's nutritional needs will be met with clear liquids. 7. Gentle IV fluids. 8. Stress dose steroids. 9. Reasonable pain and nausea control. See orders for details. LENY/VIDHI Justin Funez M.D. / [id number] CC: Park Da Silva M.D.
[2016-09-28 21:40] LABS: BASOPHILS 0.1 %; BASOPHILS ABSOLUTE 0.01 10/3/uL (0.0-0.16); EOSINOPHILS 2.2 %; EOSINOPHILS ABSOLUTE 0.16 10/3/uL (0.0-0.53); ER CBC TAT 0 Hrs 05 Mins; HEMATOCRIT 31.8 % (36.0-48.0); HEMOGLOBIN 10.1 g/dL (12.0-16.0); IMMATURE GRANULOCYTES 0.3 %; IMMATURE GRANULOCYTES ABSOLUTE 0.02 10/3/uL (0.0-0.11); LYMPHOCYTES 8.4 %; LYMPHOCYTES ABSOLUTE 0.61 10/3/uL (0.67-4.30); MEAN CORPUS HGB CONC 31.8 g/dL (32.0-36.0); MEAN CORPUSCULAR HEMOGLOB 30.9 pg (26.0-34.0); MEAN CORPUSCULAR VOLUME 97.2 fL (80-100); MEAN PLATELET VOLUME 13.1 fL (9.2-13.0); MONOCYTES 6.2 %; MONOCYTES ABSOLUTE 0.45 10/3/uL (0.21-1.20); NEUTROPHILS 82.8 %; NEUTROPHILS ABSOLUTE 5.99 10/3/uL (2.02-8.40); PLATELET COUNT 130 10/3/uL (150-400); RBC DISTRIBUTION WIDTH 14.2 % (12.0-16.0); RED CELL COUNT 3.27 10/6/uL (4.0-5.6); WHITE BLOOD CELLS 7.2 10/3/uL (4.5-10.5)
[2016-09-28 21:41] LABS: MANUAL DIFF NO %
[2016-09-28 21:52] LABS: CALCIUM, SERUM 8.2 MG/DL (8.5-10.4); CHLORIDE, SERUM 100 MMOL/L (96-112); CO2 (CARBON DIOXIDE) 33 MMOL/L (24-34); CREATININE 1.58 MG/DL (0.55-1.02); GFR AFRICAN AMERICAN 42 ML/MIN (>=60); GFR NON AFRICAN AMERICAN 36 ML/MIN (>=60); POTASSIUM, SERUM 4.1 MMOL/L (3.5-5.3); SODIUM, SERUM 139 MMOL/L (135-148)
[2016-09-28 21:54] LABS: BUN (BLOOD UREA NITROGEN) 36 MG/DL (6-23); GLUCOSE, SERUM 64 MG/DL (60-99)
[2016-09-28 22:01] LABS: LACTATE 0.7 MMOL/L (0.3-2.4)
[2016-09-28 22:34] LABS: PROCALCITONIN 0.91 ng/mL (<0.5)
[2016-09-28] MEDS ORDERED: ZOFRAN4 PO (23:53)
[2016-09-28] MEDS ORDERED: BUTRANS1 EAC1 TOP (23:54)
[2016-09-28] MEDS ORDERED: REG5 PO (23:54)
[2016-09-28] MEDS ORDERED: PROGRAF1 PO (23:55)
[2016-09-28] MEDS ORDERED: APRES25 PO (23:56)
[2016-09-28] MEDS ORDERED: DIL4TAB PO (23:57)
[2016-09-28] MEDS ORDERED: DOLOPHINE10 MG PO ×2 (23:58)
[2016-09-28] MEDS ORDERED: AMB10 PO (23:59)
[2016-09-29] MEDS ORDERED: CAT1 PO (00:01)
[2016-09-29] MEDS ORDERED: L20 PO (00:02)
[2016-09-29] MEDS ORDERED: LAMICTAL10 PO (00:02)
[2016-09-29] MEDS ORDERED: PREM625 PO (00:02)
[2016-09-29] MEDS ORDERED: VANCO1P IV (00:03)
[2016-09-29] MEDS ORDERED: CORTEF5 PO (00:05)
[2016-09-29] MEDS ORDERED: V5 PO (00:05)
[2016-09-29] MEDS ORDERED: CALCIUM CITRATE 200 MG PO (00:08)
[2016-09-29] MEDS ORDERED: COPPER 2 MG PO (00:08)
[2016-09-29] MEDS ORDERED: CHOLECALCIFEROL PO (00:08)
[2016-09-29] MEDS ORDERED: VAGIFEM10 MCG V (00:11)
[2016-09-29] MEDS ORDERED: PROTONIX PO (00:12)
[2016-09-29] MEDS ORDERED: WELL100 PO (00:12)
[2016-09-29] MEDS ORDERED: FERROUS GLUCONATE PO (00:12)
[2016-09-29] MEDS ORDERED: CYMBALTA60 PO (00:13)
[2016-09-29] MEDS ORDERED: NIFEDIPINE PR (00:14)
[2016-09-29] MEDS ORDERED: COR40 PO (00:15)
[2016-09-29] MEDS ORDERED: NEUR600 PO (00:16)
[2016-09-29 05:42] LABS: VANCOMYCIN TROUGH 14.1 MCG/ML (10.0-20.0)
[2016-09-29 07:10] LABS: BASOPHILS 0.1 %; BASOPHILS ABSOLUTE 0.01 10/3/uL (0.0-0.16); EOSINOPHILS 2.1 %; EOSINOPHILS ABSOLUTE 0.14 10/3/uL (0.0-0.53); HEMATOCRIT 32.4 % (36.0-48.0); HEMOGLOBIN 10.3 g/dL (12.0-16.0); IMMATURE GRANULOCYTES 0.3 %; IMMATURE GRANULOCYTES ABSOLUTE 0.02 10/3/uL (0.0-0.11); LYMPHOCYTES 6.3 %; LYMPHOCYTES ABSOLUTE 0.43 10/3/uL (0.67-4.30); MEAN CORPUS HGB CONC 31.8 g/dL (32.0-36.0); MEAN CORPUSCULAR VOLUME 97.6 fL (80-100); MEAN PLATELET VOLUME 13.4 fL (9.2-13.0); MONOCYTES 6.9 %; MONOCYTES ABSOLUTE 0.47 10/3/uL (0.21-1.20); NEUTROPHILS 84.3 %; NEUTROPHILS ABSOLUTE 5.74 10/3/uL (2.02-8.40); PLATELET COUNT 126 10/3/uL (150-400); RBC DISTRIBUTION WIDTH 14.2 % (12.0-16.0); RED CELL COUNT 3.32 10/6/uL (4.0-5.6); WHITE BLOOD CELLS 6.8 10/3/uL (4.5-10.5)
[2016-09-29 07:11] LABS: MANUAL DIFF NO %
[2016-09-29 07:19] LABS: BUN (BLOOD UREA NITROGEN) 27 MG/DL (6-23); CHLORIDE, SERUM 106 MMOL/L (96-112); CO2 (CARBON DIOXIDE) 28 MMOL/L (24-34); CREATININE 1.39 MG/DL (0.55-1.02); GFR AFRICAN AMERICAN 49 ML/MIN (>=60); GFR NON AFRICAN AMERICAN 43 ML/MIN (>=60); GLUCOSE, SERUM 65 MG/DL (60-99); PHOSPHORUS, SERUM 3.2 MG/DL (2.5-4.5); POTASSIUM, SERUM 3.9 MMOL/L (3.5-5.3); SODIUM, SERUM 142 MMOL/L (135-148); TRIGLYCERIDE 128 MG/DL (< 150)
[2016-09-29 07:28] LABS: PREALBUMIN 12.3 MG/DL (17.0-43.0)
[2016-09-29 08:00] LABS: PROCALCITONIN 0.75 ng/mL (<0.5)
[2016-09-29 08:57] LABS: PLATELET ESTIMATE SLT DEC (ADEQUATE)
[2016-09-29 08:58] LABS: RBC MORPHOLOGY NORM (NORMAL)
[2016-09-30 09:17] LABS: BASOPHILS 0 %; EOSINOPHILS 0.3 %; EOSINOPHILS ABSOLUTE 0.03 10/3/uL (0.0-0.53); HEMATOCRIT 29.6 % (36.0-48.0); HEMOGLOBIN 9.6 g/dL (12.0-16.0); IMMATURE GRANULOCYTES 0.1 %; IMMATURE GRANULOCYTES ABSOLUTE 0.01 10/3/uL (0.0-0.11); LYMPHOCYTES 8.2 %; LYMPHOCYTES ABSOLUTE 0.76 10/3/uL (0.67-4.30); MANUAL DIFF NO %; MEAN CORPUS HGB CONC 32.4 g/dL (32.0-36.0); MEAN CORPUSCULAR HEMOGLOB 31.1 pg (26.0-34.0); MEAN CORPUSCULAR VOLUME 95.8 fL (80-100); MONOCYTES 4.5 %; MONOCYTES ABSOLUTE 0.42 10/3/uL (0.21-1.20); NEUTROPHILS 86.9 %; NEUTROPHILS ABSOLUTE 8.04 10/3/uL (2.02-8.40); PLATELET COUNT 140 10/3/uL (150-400); RBC DISTRIBUTION WIDTH 13.8 % (12.0-16.0); RED CELL COUNT 3.09 10/6/uL (4.0-5.6); WHITE BLOOD CELLS 9.3 10/3/uL (4.5-10.5)
[2016-09-30 09:35] LABS: A/G RATIO 0.7 (0.7-1.9); ALBUMIN 2.1 G/DL (3.5-5.0); ALKALINE PHOSPHATASE 89 U/L (45-117); BUN (BLOOD UREA NITROGEN) 27 MG/DL (6-23); CALCIUM, SERUM 8.9 MG/DL (8.5-10.4); CHLORIDE, SERUM 108 MMOL/L (96-112); CO2 (CARBON DIOXIDE) 27 MMOL/L (24-34); CREATININE 1.33 MG/DL (0.55-1.02); GFR AFRICAN AMERICAN 52 ML/MIN (>=60); GFR NON AFRICAN AMERICAN 45 ML/MIN (>=60); GLOBULIN 3.2 G/DL (2.5-4.1); GLUCOSE, SERUM 76 MG/DL (60-99); PHOSPHORUS, SERUM 2.4 MG/DL (2.5-4.5); POTASSIUM, SERUM 4.2 MMOL/L (3.5-5.3); SGOT(AST) 19 U/L (5-40); SGPT(ALT) 23 U/L (5-65); SODIUM, SERUM 138 MMOL/L (135-148); TOTAL BILIRUBIN 0.4 MG/DL (0-1.2); TOTAL PROTEIN 5.3 G/DL (6.0-8.5)
[2016-10-01 06:02] LABS: BASOPHILS 0.2 %; BASOPHILS ABSOLUTE 0.01 10/3/uL (0.0-0.16); EOSINOPHILS 0.9 %; EOSINOPHILS ABSOLUTE 0.05 10/3/uL (0.0-0.53); HEMOGLOBIN 8.8 g/dL (12.0-16.0); LYMPHOCYTES 7.9 %; LYMPHOCYTES ABSOLUTE 0.46 10/3/uL (0.67-4.30); MEAN CORPUS HGB CONC 31.4 g/dL (32.0-36.0); MEAN CORPUSCULAR HEMOGLOB 30.7 pg (26.0-34.0); MEAN CORPUSCULAR VOLUME 97.6 fL (80-100); MONOCYTES 7.7 %; MONOCYTES ABSOLUTE 0.45 10/3/uL (0.21-1.20); NEUTROPHILS 83.3 %; NEUTROPHILS ABSOLUTE 4.85 10/3/uL (2.02-8.40); PLATELET COUNT 144 10/3/uL (150-400); RBC DISTRIBUTION WIDTH 13.9 % (12.0-16.0); RED CELL COUNT 2.87 10/6/uL (4.0-5.6); WHITE BLOOD CELLS 5.8 10/3/uL (4.5-10.5)
[2016-10-01 06:06] LABS: MANUAL DIFF NO %
[2016-10-01 06:18] LABS: A/G RATIO 0.6 (0.7-1.9); ALBUMIN 1.9 G/DL (3.5-5.0); ALKALINE PHOSPHATASE 82 U/L (45-117); BUN (BLOOD UREA NITROGEN) 24 MG/DL (6-23); CALCIUM, SERUM 8.5 MG/DL (8.5-10.4); CHLORIDE, SERUM 109 MMOL/L (96-112); CO2 (CARBON DIOXIDE) 27 MMOL/L (24-34); CREATININE 1.53 MG/DL (0.55-1.02); GFR AFRICAN AMERICAN 44 ML/MIN (>=60); GFR NON AFRICAN AMERICAN 38 ML/MIN (>=60); GLUCOSE, SERUM 90 MG/DL (60-99); PHOSPHORUS, SERUM 2.7 MG/DL (2.5-4.5); POTASSIUM, SERUM 4.2 MMOL/L (3.5-5.3); SGOT(AST) 16 U/L (5-40); SGPT(ALT) 17 U/L (5-65); SODIUM, SERUM 140 MMOL/L (135-148); TOTAL BILIRUBIN 0.3 MG/DL (0-1.2); TOTAL PROTEIN 4.9 G/DL (6.0-8.5); VANCOMYCIN TROUGH 13.9 MCG/ML (10.0-20.0)
[2016-10-01] MEDS ORDERED: CIP5 PO (10:36)
[2016-12-15] MEDS ORDERED: LOVENOX40 SC (01:01)
[2016-12-15] MEDS ORDERED: VANCO1P IV (01:04)
[2016-12-15] MEDS ORDERED: AMB10 PO (01:06)
[2016-12-15] MEDS ORDERED: CAT1 PO (01:09)
[2016-12-15] MEDS ORDERED: BUTRANS1 EAC1 TOP (01:09)
[2016-12-15] MEDS ORDERED: BENTYL10 PO (01:09)
[2016-12-15] MEDS ORDERED: CORTEF5 PO (01:11)
[2016-12-15] MEDS ORDERED: CYMBALTA60 PO (01:11)
[2016-12-15] MEDS ORDERED: V5 PO (01:12)
[2016-12-15] MEDS ORDERED: DIL4TAB PO (01:13)
[2016-12-15] MEDS ORDERED: ESTRACE VAGIN42.5 GM V (01:14)
[2016-12-15] MEDS ORDERED: VAGIFEM10 MCG V (01:15)
[2016-12-15] MEDS ORDERED: APRES25 PO (01:15)
[2016-12-15] MEDS ORDERED: FERROUS GLUCONATE PO (01:15)
[2016-12-15] MEDS ORDERED: LAMICTAL10 PO (01:16)
[2016-12-15] MEDS ORDERED: LIDODERM TOP (01:17)
[2016-12-15] MEDS ORDERED: DOLOPHINE10 MG PO ×2 (01:18→01:19)
[2016-12-15] MEDS ORDERED: COR40 PO (01:19)
[2016-12-15] MEDS ORDERED: NEUR600 PO (01:20)
[2016-12-15] MEDS ORDERED: PREM625 PO (01:20)
[2016-12-15] MEDS ORDERED: MYTAB GAS80 MG PO (01:21)
[2016-12-15] MEDS ORDERED: REG5 PO (01:21)
[2016-12-15] MEDS ORDERED: PROTONIX PO (01:21)
[2016-12-15] MEDS ORDERED: PROGRAF1 PO (01:22)
[2016-12-15] MEDS ORDERED: TESS PO (01:23)
[2016-12-15] MEDS ORDERED: WELL100 PO (01:24)
[2016-12-15] MEDS ORDERED: ZOFRAN4 PO (01:25)
[2016-12-15] MEDS ORDERED: NIFEDIPINE PR (01:36)
[2016-12-15] MEDS ORDERED: VITAMIN D OTC PO (01:38)
[2016-12-16] MEDS ORDERED: C5 PO (15:54)
== END 2016-10-01 17:47 | disposition home or self-care (01) | DRG 871 ==
LOC: ER 21:43 → 5SO 09-29 02:10
PROVIDERS: Emergency Medicine; Hospitalist; Internal Medicine
PROC: 3E0336Z Introduction of Nutritional Substance into Peripheral Vein, Percutaneous Approach (ICD-10-PCS; principal; 2016-09-29)
DX: A41.89 Other specified sepsis (principal); J96.21 Acute and chronic respiratory failure with hypoxia; J90 Pleural effusion, not elsewhere classified; Z94.82 Intestine transplant status; F11.20 Opioid dependence, uncomplicated; E87.70 Fluid overload, unspecified; E88.09 Other disorders of plasma-protein metabolism, not elsewhere classified; E27.40 Unspecified adrenocortical insufficiency; L03.116 Cellulitis of left lower limb; N18.3 Chronic kidney disease, stage 3 (moderate); G89.4 Chronic pain syndrome; F32.9 Major depressive disorder, single episode, unspecified; F41.9 Anxiety disorder, unspecified; Z88.2 Allergy status to sulfonamides; Z88.1 Allergy status to other antibiotic agents; I10 Essential (primary) hypertension; D64.9 Anemia, unspecified; Z91.041 Radiographic dye allergy status; Z87.442 Personal history of urinary calculi; Z79.899 Other long term (current) drug therapy
CPT/HCPCS: 36593; 71010; 71020; 72072; 72100; 73030-RT; 74176; 80048; 80053; 80202; 81001; 82330; 82962; 83605; 83690; 83735; 84100; 84134; 84145; 84478; 85025; 87040; 87070; 87077; 87150; 87186; 87205; 93306; 96365; 96366; 96374; 96375; 99284; A9270-GY; J1170; J1720; J1885; J2405; J2765; J2997; J3370; J3475; J7507

== ENCOUNTER 2016-10-22 20:05 | Emergency (ER) | payer BC, MEDICARE ==
[2016-10-22 17:28] LABS: BASOPHILS 0.1 %; BASOPHILS ABSOLUTE 0.01 10/3/uL (0.0-0.16); EOSINOPHILS 0.2 %; EOSINOPHILS ABSOLUTE 0.02 10/3/uL (0.0-0.53); HEMOGLOBIN 10.1 g/dL (12.0-16.0); IMMATURE GRANULOCYTES 0.2 %; IMMATURE GRANULOCYTES ABSOLUTE 0.02 10/3/uL (0.0-0.11); LYMPHOCYTES 5.1 %; LYMPHOCYTES ABSOLUTE 0.43 10/3/uL (0.67-4.30); MEAN CORPUS HGB CONC 32.3 g/dL (32.0-36.0); MEAN CORPUSCULAR HEMOGLOB 30.8 pg (26.0-34.0); MEAN CORPUSCULAR VOLUME 95.4 fL (80-100); MONOCYTES 5.5 %; MONOCYTES ABSOLUTE 0.46 10/3/uL (0.21-1.20); NEUTROPHILS 88.9 %; NEUTROPHILS ABSOLUTE 7.46 10/3/uL (2.02-8.40); PLATELET COUNT 143 10/3/uL (150-400); RBC DISTRIBUTION WIDTH 14.4 % (12.0-16.0); RED CELL COUNT 3.28 10/6/uL (4.0-5.6)
[2016-10-22 17:29] LABS: HEMATOCRIT 31.3 % (36.0-48.0); MANUAL DIFF NO %; WHITE BLOOD CELLS 8.4 10/3/uL (4.5-10.5)
[2016-10-22 17:47] LABS: CALCIUM, SERUM 8.6 MG/DL (8.5-10.4); CHEST PAIN PROFILE TAT 0 Hrs 22 Mins; CHLORIDE, SERUM 103 MMOL/L (96-112); CO2 (CARBON DIOXIDE) 27 MMOL/L (24-34); CREATININE 1.46 MG/DL (0.55-1.02); GFR AFRICAN AMERICAN 46 ML/MIN (>=60); GFR NON AFRICAN AMERICAN 40 ML/MIN (>=60); POTASSIUM, SERUM 4.1 MMOL/L (3.5-5.3); SODIUM, SERUM 138 MMOL/L (135-148); TROPONIN I <0.02 NG/ML (<0.05)
[2016-10-22 17:48] LABS: BUN (BLOOD UREA NITROGEN) 37 MG/DL (6-23); GLUCOSE, SERUM 115 MG/DL (60-99)
[2016-10-22 17:55] LABS: INTERNATIONAL NORMAL RATI 1.1 UNITS (-); PARTIAL THROMBO TIME 23.5 SEC (22.5-37.2)
[2016-10-22 19:47] LABS: ALBUMIN 2.8 G/DL (3.5-5.0); ALKALINE PHOSPHATASE 125 U/L (45-117); DIRECT BILIRUBIN 0.2 MG/DL (0.0-0.4); INDIRECT BILIRUBIN(NOT ORDER) 0.7 MG/DL (0.1-0.9); SGOT(AST) 18 U/L (5-40); SGPT(ALT) 22 U/L (5-65); TOTAL BILIRUBIN 0.9 MG/DL (0-1.2); TOTAL PROTEIN 5.8 G/DL (6.0-8.5)
[~2016-10-22 20:05] MED LIST changes: +AMB10 PO; +APRES25 PO; +CIP5 PO; +LAMICTAL10 PO; +NIFEDIPINE PR; +REG5 PO; +VANCO1P IV
[2016-12-15] MEDS ORDERED: LOVENOX40 SC (01:01)
[2016-12-15] MEDS ORDERED: VANCO1P IV (01:04)
[2016-12-15] MEDS ORDERED: AMB10 PO (01:06)
[2016-12-15] MEDS ORDERED: CAT1 PO (01:09)
[2016-12-15] MEDS ORDERED: BUTRANS1 EAC1 TOP (01:09)
[2016-12-15] MEDS ORDERED: BENTYL10 PO (01:09)
[2016-12-15] MEDS ORDERED: CORTEF5 PO (01:11)
[2016-12-15] MEDS ORDERED: CYMBALTA60 PO (01:11)
[2016-12-15] MEDS ORDERED: V5 PO (01:12)
[2016-12-15] MEDS ORDERED: DIL4TAB PO (01:13)
[2016-12-15] MEDS ORDERED: ESTRACE VAGIN42.5 GM V (01:14)
[2016-12-15] MEDS ORDERED: VAGIFEM10 MCG V (01:15)
[2016-12-15] MEDS ORDERED: FERROUS GLUCONATE PO (01:15)
[2016-12-15] MEDS ORDERED: APRES25 PO (01:15)
[2016-12-15] MEDS ORDERED: LAMICTAL10 PO (01:16)
[2016-12-15] MEDS ORDERED: LIDODERM TOP (01:17)
[2016-12-15] MEDS ORDERED: DOLOPHINE10 MG PO ×2 (01:18→01:19)
[2016-12-15] MEDS ORDERED: COR40 PO (01:19)
[2016-12-15] MEDS ORDERED: NEUR600 PO (01:20)
[2016-12-15] MEDS ORDERED: PREM625 PO (01:20)
[2016-12-15] MEDS ORDERED: PROTONIX PO (01:21)
[2016-12-15] MEDS ORDERED: MYTAB GAS80 MG PO (01:21)
[2016-12-15] MEDS ORDERED: REG5 PO (01:21)
[2016-12-15] MEDS ORDERED: PROGRAF1 PO (01:22)
[2016-12-15] MEDS ORDERED: TESS PO (01:23)
[2016-12-15] MEDS ORDERED: WELL100 PO (01:24)
[2016-12-15] MEDS ORDERED: ZOFRAN4 PO (01:25)
[2016-12-15] MEDS ORDERED: NIFEDIPINE PR (01:36)
[2016-12-15] MEDS ORDERED: VITAMIN D OTC PO (01:38)
[2016-12-16] MEDS ORDERED: C5 PO (15:54)
== END 2016-10-22 20:10 | disposition home or self-care (01) ==
LOC: ER 20:05
PROVIDERS: Emergency Medicine
DX: R10.84 Generalized abdominal pain (principal); G47.30 Sleep apnea, unspecified; I12.9 Hypertensive chronic kidney disease with stage 1 through stage 4 chronic kidney disease, or unspecified chronic kidney disease; N18.9 Chronic kidney disease, unspecified; F41.9 Anxiety disorder, unspecified; F32.9 Major depressive disorder, single episode, unspecified; D64.9 Anemia, unspecified; Z87.01 Personal history of pneumonia (recurrent); Z87.442 Personal history of urinary calculi; Z88.8 Allergy status to other drugs, medicaments and biological substances; Z88.5 Allergy status to narcotic agent; Z88.2 Allergy status to sulfonamides; Z88.1 Allergy status to other antibiotic agents; Z91.041 Radiographic dye allergy status; Z79.899 Other long term (current) drug therapy
CPT/HCPCS: 71020; 74176; 80048; 80076; 83735; 84484; 85025; 85610; 85730; 93005; 96374; 96375; 96376; 99285; J1170; J2405